=== PATIENT | male | born 1960 | race Caucasian/White ===

== ENCOUNTER 2020-12-31 06:59 | Observation (INO) | payer OTHER ==
[2020-12-26 13:08] LABS: BASOPHILS # (AUTO) 0.1 (0.0-0.1); BASOPHILS % 0.6 % (0.0-1.0); EOSINOPHILS # (AUTO) 0.6 (0.0-0.4); EOSINOPHILS % 6.2 % (0.0-6.0); HEMATOCRIT 38.5 % (38.2-49.6); LYMPHOCYTES # (AUTO) 2.7 (1.0-3.2); LYMPHOCYTES % 26.1 % (18.0-39.1); MEAN CORPUSCULAR HEMOGLOBIN 30.7 pg (28-32); MEAN CORPUSCULAR HGB CONC 33.8 g/dL (31-35); MEAN CORPUSCULAR VOLUME 90.8 fL (81-99); MONOCYTES # (AUTO) 0.8 (0.2-0.8); MONOCYTES % 7.8 % (4.4-11.3); PLATELET COUNT 387 x10e3/uL (140-360); RED BLOOD COUNT 4.24 x10e6/uL (4.3-5.7); RED CELL DISTRIBUTION WIDTH 13.4 % (11.7-14.4)
[~2020-12-31] VITALS: Ht 175.3 cm; Wt 80.7 kg
[~2020-12-31 06:59] MED LIST: ADVIL200 M1 PO; MULTI-VITAMIN1 EACH PO; SUDAFED 12 HOU120 MG PO; TYLENOL325 M2 PO; XYZAL5 MG PO
[2020-12-31] MEDS ORDERED: CEFAZOLIN SOD 1 GM/NS 50ML 100 ML IV ONE (07:36)
[2020-12-31] MEDS ORDERED: CELECOXIB 200 MG CAP ONE (07:36)
[2020-12-31] MEDS ORDERED: DEXAMETHASONE SOD PHOS 10 MG/1 ML VIAL ONE (07:36)
[2020-12-31] MEDS ORDERED: GABAPENTIN 300 MG CAP ONE (07:36)
[2020-12-31] MEDS ORDERED: ROPIVACAINE 246.25 MG, EPINEPHRINE HCL 1:1000 1ML 0.5 MG, CLONIDINE HCL 0.08 MG, KETORO... INJ ONE ×5 (08:00)
[2020-12-31] MEDS ORDERED: BUPIVACAINE 7.5MG/ML /DEXTROSE 82.5MG/ML 2 ML AMP INJ ONE (08:17)
[2020-12-31] MEDS ORDERED: SODIUM CHLORIDE 0.9% 500ML 500 ML ONE (08:26)
[2020-12-31] MEDS ORDERED: VANCOMYCIN HCL 1,000 MG ONE (08:27)
[2020-12-31] MEDS ORDERED: TRANEXAMIC ACID 1,000 MG/10 ML ML ONE (08:27)
[2020-12-31] MEDS: SODIUM CHLORIDE 0.9% 1000ML 1,000 ML IV SCH ×2 (10:30→20:30)
[2020-12-31] MEDS ORDERED: ACETAMINOPHEN 650 MG SUPP PR PRN (10:30)
[2020-12-31] MEDS ORDERED: DOCUSATE SODIUM 100 MG CAP PO PRN (10:30)
[2020-12-31] MEDS ORDERED: DIPHENHYDRAMINE HCL INJ 50 MG/ML VIAL IV PRN (10:30)
[2020-12-31] MEDS ORDERED: ONDANSETRON HCL INJ 2MG/ML 2ML 2 MG/ML VIAL IV PRN (10:30)
[2020-12-31] MEDS ORDERED: KETOROLAC TROMETHAMINE 30 MG/ML VIAL IV PRN (10:30)
[2020-12-31] MEDS: HYDROCODONE/APAP 5MG-325MG TAB PO PRN ×2 (12:41→20:31)
[2020-12-31] MEDS ORDERED: HYDROCODONE/APAP 5MG-325MG TAB ONE (12:49)
[2020-12-31] MEDS ORDERED: MIDAZOLAM HCL 2 MG/2 ML VIAL ONE (13:32)
[2020-12-31] MEDS ORDERED: FENTANYL CITRATE/PF 100MCG/2 ML INJ ONE (13:32)
[2020-12-31 14:43] VITALS: BP 126/62
[2020-12-31 14:44] VITALS: BP 126/62
[2020-12-31] MEDS ORDERED: ACETAMINOPHEN 1000 MG/100 ML IV PRN (16:00)
[2020-12-31 16:30] VITALS: BP 123/81
[2020-12-31] MEDS: ASPIRIN 325 MG TAB PO SCH (16:40)
[2020-12-31] MEDS: CEFAZOLIN SOD 1 GM/NS 50ML 50 ML IV SCH (16:40)
[2020-12-31] MEDS: CELECOXIB 100 MG CAP PO SCH (16:41)
[2020-12-31] MEDS ORDERED: PROPOFOL IV EMULSION 10 MG/ML 20 ML VIAL ONE (17:41)
[2020-12-31] MEDS ORDERED: LIDOCAINE HCL 2% LOCAL INJ 5 ML SDV VIAL INJ ONE (17:41)
[2020-12-31] MEDS ORDERED: POVIDONE IODINE 0.05% 0.05 % ML PO ONE (17:41)
[2020-12-31 19:30] VITALS: BP 123/78
[2020-12-31 20:45] VITALS: BP 123/78
[2020-12-31] MEDS ORDERED: ZOLPIDEM TARTRATE 5 MG TAB PO PRN (21:00)
[2021-01-01] VITALS: BP 115/74
[2021-01-01] MEDS: HYDROCODONE/APAP 7.5MG-325MG 1 EA TAB PO PRN ×3 (00:50→11:30)
[2021-01-01] MEDS: CEFAZOLIN SOD 1 GM/NS 50ML 50 ML IV SCH ×2 (00:50→09:03)
[2021-01-01 04:00] VITALS: BP 141/85
[2021-01-01 04:53] LABS: HEMATOCRIT 31.7 % (38.2-49.6); HEMOGLOBIN 10.9 g/dL (14.0-18.0)
[2021-01-01] MEDS: SODIUM CHLORIDE 0.9% 1000ML 1,000 ML IV SCH (06:30)
[2021-01-01 08:05] VITALS: BP 123/77
[2021-01-01 08:55] VITALS: BP 123/77
[2021-01-01] MEDS ORDERED: LORATADINE 10 MG TAB PO SCH (09:00)
[2021-01-01] MEDS: ASPIRIN 325 MG TAB PO SCH (09:03)
[2021-01-01] MEDS: CELECOXIB 100 MG CAP PO SCH (09:04)
[2021-01-01] MEDS ORDERED: ONDANSETRON HCL 4 MG ORAL DISINTEGRATING TAB PO PRN ×2 (11:45→12:00)
[2021-01-01 12:12] VITALS: BP 127/78
[2021-01-01] MEDS ORDERED: CELECOXIB 200 MG CAP PO SCH (17:00)
== END 2021-01-01 12:18 | disposition home or self-care (01) ==
LOC: OR 06:59 → PACU V 10:44 → MED/SURG 14:05
PROVIDERS: ADMIT Specialist; ATTEND Specialist
DX: M16.11 Unilateral primary osteoarthritis, right hip (principal); Z20.822 Contact with and (suspected) exposure to COVID-19
CPT/HCPCS: 27130; 36415 ×2; 72170; 85014; 85018; 85025; 86850; 86900; 86920; 97110 ×2; 97116 ×2; 97161; 97530; G0378 ×2; J0171; J0690 ×2; J1100; J1885; J2001; J2250; J2704; J2795; J3010; J3370; J7040; U0002

== ENCOUNTER 2021-02-04 10:26 | Observation (INO) | payer OTHER ==
[2021-01-31 11:18] LABS: BASOPHILS # (AUTO) 0.1 (0.0-0.1); BASOPHILS % 0.7 % (0.0-1.0); EOSINOPHILS # (AUTO) 0.8 (0.0-0.4); EOSINOPHILS % 7.6 % (0.0-6.0); HEMATOCRIT 39.2 % (38.2-49.6); HEMOGLOBIN 12.8 g/dL (14.0-18.0); LYMPHOCYTES # (AUTO) 2.1 (1.0-3.2); LYMPHOCYTES % 19.5 % (18.0-39.1); MEAN CORPUSCULAR HEMOGLOBIN 29.8 pg (28-32); MEAN CORPUSCULAR HGB CONC 32.7 g/dL (31-35); MEAN CORPUSCULAR VOLUME 91.4 fL (81-99); NEUTROPHILS # (AUTO) 6.7 (2.1-6.9); NEUTROPHILS % 62.8 % (38.7-80.0); PLATELET COUNT 383 x10e3/uL (140-360); RED BLOOD COUNT 4.29 x10e6/uL (4.3-5.7); RED CELL DISTRIBUTION WIDTH 13.1 % (11.7-14.4)
[~2021-02-04] VITALS: Ht 175.3 cm; Wt 79.8 kg
[~2021-02-04 10:26] MED LIST changes: +ROPIVACAINE 246.25 MG, EPINEPHRINE HCL 1:1000 1ML 0.5 MG, CLONIDINE HCL 0.08 MG, KETORO... INJ ONE
[2021-02-04] MEDS ORDERED: GABAPENTIN 300 MG CAP ONE (10:38)
[2021-02-04] MEDS ORDERED: DEXAMETHASONE SOD PHOS 10 MG/1 ML VIAL ONE (10:38)
[2021-02-04] MEDS ORDERED: CELECOXIB 200 MG CAP ONE (10:38)
[2021-02-04] MEDS ORDERED: SODIUM CHLORIDE 0.9% 50ML 100 ML ONE (10:39)
[2021-02-04] MEDS ORDERED: TRANEXAMIC ACID 1,000 MG/10 ML ML ONE (10:47)
[2021-02-04] MEDS ORDERED: Vancomycin IV 1,000 MG ONE (10:47)
[2021-02-04] MEDS ORDERED: SODIUM CHLORIDE 0.9% 500ML 500 ML ONE (10:48)
[2021-02-04] MEDS ORDERED: BUPIVACAINE 7.5MG/ML /DEXTROSE 82.5MG/ML 2 ML AMP INJ ONE (10:58)
[2021-02-04] MEDS ORDERED: HYDROCODONE/APAP 5MG-325MG TAB PO PRN (13:15)
[2021-02-04] MEDS ORDERED: SODIUM CHLORIDE 0.9% 1000ML 1,000 ML IV SCH (13:15)
[2021-02-04] MEDS ORDERED: DOCUSATE SODIUM 100 MG CAP PO PRN (13:15)
[2021-02-04] MEDS ORDERED: ACETAMINOPHEN 650 MG SUPP PR PRN (13:15)
[2021-02-04] MEDS ORDERED: ONDANSETRON HCL INJ 2MG/ML 2ML 2 MG/ML VIAL IV PRN (13:15)
[2021-02-04] MEDS ORDERED: KETOROLAC TROMETHAMINE 30 MG/ML VIAL IV PRN (13:15)
[2021-02-04] MEDS ORDERED: DIPHENHYDRAMINE HCL INJ 50 MG/ML VIAL IV PRN (13:15)
[2021-02-04 15:39] VITALS: BP 121/68
[2021-02-04] MEDS: ASPIRIN 325 MG TAB PO SCH (16:41)
[2021-02-04] MEDS: Cefazolin 1 GM in SODIUM CHLORIDE 0.9% 50ML 50 ML IV SCH ×2 (16:41→22:12)
[2021-02-04] MEDS: CELECOXIB 100 MG CAP PO SCH (16:41)
[2021-02-04] MEDS ORDERED: POVIDONE IODINE 0.05% 0.05 % ML PO ONE (19:19)
[2021-02-04] MEDS ORDERED: LIDOCAINE HCL 2% LOCAL INJ 5 ML SDV VIAL INJ ONE (19:19)
[2021-02-04] MEDS ORDERED: PROPOFOL IV EMULSION 10 MG/ML 20 ML VIAL ONE (19:19)
[2021-02-04 20:00] VITALS: BP 125/71
[2021-02-04 20:29] VITALS: BP 125/71
[2021-02-04] MEDS ORDERED: ZOLPIDEM TARTRATE 5 MG TAB PO PRN (21:00)
[2021-02-05] VITALS: BP 139/69
[2021-02-05] MEDS: HYDROCODONE/APAP 7.5MG-325MG 1 EA TAB PO PRN ×2 (02:32→07:31)
[2021-02-05 04:00] VITALS: BP 132/70
[2021-02-05] MEDS: Cefazolin 1 GM in SODIUM CHLORIDE 0.9% 50ML 50 ML IV SCH (05:38)
[2021-02-05 06:01] LABS: HEMATOCRIT 31.6 % (38.2-49.6); HEMOGLOBIN 10.4 g/dL (14.0-18.0)
[2021-02-05] MEDS: CELECOXIB 100 MG CAP PO SCH (07:31)
[2021-02-05] MEDS: ASPIRIN 325 MG TAB PO SCH (07:31)
[2021-02-05 07:47] VITALS: BP 132/70
[2021-02-05 08:08] VITALS: BP 147/85
[2021-02-05] MEDS ORDERED: ONDANSETRON HCL 4 MG ORAL DISINTEGRATING TAB PO PRN (10:15)
[2021-02-05 11:57] VITALS: BP 127/77
[2021-02-05] MEDS ORDERED: ACETAMINOPHEN 1000 MG/100 ML IV PRN (13:15)
[2021-02-05] MEDS ORDERED: CELECOXIB 200 MG CAP PO SCH (17:00)
== END 2021-02-05 12:00 | disposition home or self-care (01) ==
LOC: OR 10:26 → PACU V 13:51 → MED/SURG 14:12
PROVIDERS: ADMIT Specialist; ATTEND Specialist
DX: M16.12 Unilateral primary osteoarthritis, left hip (principal); J30.2 Other seasonal allergic rhinitis; Z96.641 Presence of right artificial hip joint; Z01.812 Encounter for preprocedural laboratory examination; D64.9 Anemia, unspecified
CPT/HCPCS: 27130; 36415 ×2; 72170; 85014; 85018; 85025; 97116 ×2; 97161; 97530; C1713 ×3; C1776 ×2; G0378 ×2; J0171; J0690 ×2; J1100; J1885; J2001; J2704; J2795; J3370; J7030; J7040